=== PATIENT | male | born 1960 | race Caucasian/White ===

== ENCOUNTER 2016-10-01 15:11 | Emergency (ER) | payer SELFPAY ==
[~2016-10-01] VITALS: Ht 182.8 cm; Wt 65.8 kg
[~2016-10-01 15:11] MED LIST: MEDROL DOSEPAK4 MG PO; VICODIN ES 7501 TAB PO
[2016-10-01] MEDS ORDERED: NAPROSYN500 MG PO (16:14)
[2016-10-01] MEDS ORDERED: AMOXICILLIN500 M2 PO (16:14)
== END 2016-10-01 16:21 | disposition home or self-care (01) ==
LOC: ED 15:11
DX: K08.89 Other specified disorders of teeth and supporting structures (principal); F17.200 Nicotine dependence, unspecified, uncomplicated

== ENCOUNTER 2017-02-14 12:20 | Emergency (ER) | payer SELFPAY ==
[~2017-02-14] VITALS: Wt 70.3 kg
[~2017-02-14 12:20] MED LIST changes: +AMOXICILLIN500 M2 PO; +NAPROSYN500 MG PO
[2017-02-14 12:53] LABS: BASO # 0.1 10*3/uL (0.0-0.1); BASO % 0.5 % (0.0-1.0); EOS % 0.3 % (1.0-4.0); HEMATOCRIT 44.8 % (42.0-52.0); HEMOGLOBIN 15.6 g/dl (14.0-18.0); LYMPH # 1.1 10*3/uL (1.3-4.4); LYMPH % 11.5 % (27.0-41.0); MEAN CELL VOLUME 90.9 fl (80.0-94.0); MEAN CORPUSCULAR HGB 31.6 pg (27.0-31.0); MEAN CORPUSCULAR HGB CONC 34.8 g/dl (33.0-37.0); MEAN PLATELET VOLUME 9.5 fl (9.6-12.3); MONO # 0.6 10*3/uL (0.1-1.0); MONO % 6.5 % (3.0-9.0); NEUT # 7.4 10*3/uL (2.3-7.9); NEUT % 80.9 % (47.0-73.0); PLATELET COUNT AUTOMATED 256 10*3/uL (130-400); RED BLOOD COUNT 4.93 10*6/uL (4.50-5.90); RED CELL DISTRI WIDTH 12.8 % (0-14.5); WHITE BLOOD COUNT 9.2 10*3/uL (4.8-10.8)
[2017-02-14 13:10] LABS: ALBUMIN 4.2 gm/dl (3.1-4.5); ALKALINE PHOSPHATASE 67 U/L (45-117); BUN 18 mg/dl (7-24); CHLORIDE 103 mmol/L (98-107); CREATININE 0.92 mg/dL (0.70-1.30); POTASSIUM 4.3 mmol/L (3.5-5.1); SGOT/AST 12 IU/L (3-35); SGPT/ALT 20 U/L (12-78); SODIUM 138 mmol/L (136-145); TOTAL PROTEIN 7.8 gm/dL (6.4-8.2)
[2017-02-14 13:12] LABS: ETHYL ALCOHOL < 3.0 mg/dl (<3); TROPONIN I < 0.015 ng/ml (<0.045)
[2017-02-14] MEDS ORDERED: VISTARIL25 MG PO (14:03)
== END 2017-02-14 14:27 | disposition home or self-care (01) ==
LOC: ED 12:20
PROVIDERS: Physician Assistant
DX: G47.00 Insomnia, unspecified (principal); F17.200 Nicotine dependence, unspecified, uncomplicated; Z88.1 Allergy status to other antibiotic agents

== ENCOUNTER 2019-02-09 19:08 | Emergency (ER) | payer OTHER ==
[~2019-02-09] VITALS: Ht 182.8 cm; Wt 63.5 kg
[~2019-02-09 19:08] MED LIST changes: +VISTARIL25 MG PO
[2019-02-09] MEDS ORDERED: SEPTDS PO (20:05)
== END 2019-02-09 20:19 | disposition home or self-care (01) ==
LOC: ED 19:08
DX: H60.02 Abscess of left external ear (principal)

== ENCOUNTER → 2021-04-24 | Outpatient (CLI) | payer OTHER ==
[~2021-04-24] MED LIST changes: +IBUPROFEN600 MG PO; +SEPTDS PO
== END ==
LOC: COVID19 15:27
PROVIDERS: ATTEND Internal Medicine
DX: U07.1 COVID-19 (principal)

== ENCOUNTER 2021-04-25 18:57 | Emergency (ER) | payer OTHER ==
[~2021-04-25] VITALS: Ht 182.8 cm; Wt 65.8 kg
[~2021-04-25 18:57] MED LIST changes: -IBUPROFEN600 MG PO
[2021-04-25 19:39] LABS: BASO % 0.5 % (0.0-1.0); EOS % 0.5 % (1.0-4.0); HEMATOCRIT 40.2 % (42.0-52.0); MEAN CELL VOLUME 95.3 fl (80.0-94.0); MEAN CORPUSCULAR HGB 31.5 pg (27.0-31.0); MEAN CORPUSCULAR HGB CONC 33.1 g/dl (33.0-37.0); MONO # 0.5 10*3/uL (0.1-1.0); MONO % 13.9 % (3.0-9.0); NEUT # 2.3 10*3/uL (2.3-7.9); NEUT % 58.1 % (47.0-73.0); PLATELET COUNT AUTOMATED 142 10*3/uL (130-400); RED BLOOD COUNT 4.22 10*6/uL (4.50-5.90); RED CELL DISTRI WIDTH 11.9 % (0-14.5); WHITE BLOOD COUNT 3.9 10*3/uL (4.8-10.8)
[2021-04-25 19:54] LABS: ALBUMIN 2.7 gm/dl (3.1-4.5); ALKALINE PHOSPHATASE 75 U/L (45-117); BUN 22 mg/dl (7-24); CHLORIDE 105 mmol/L (98-107); CREATININE 1.06 mg/dL (0.70-1.30); POTASSIUM 4.6 mmol/L (3.5-5.1); SGOT/AST 30 IU/L (3-35); SGPT/ALT 24 U/L (12-78); SODIUM 136 mmol/L (136-145); TOTAL PROTEIN 6.2 gm/dL (6.4-8.2)
[2021-04-25] MEDS ORDERED: IBUPROFEN600 MG PO (21:18)
== END 2021-04-25 20:42 | disposition home or self-care (01) ==
LOC: ED 18:57
PROVIDERS: Internal Medicine
DX: R05.9 Cough, unspecified (principal); D72.829 Elevated white blood cell count, unspecified; E44.0 Moderate protein-calorie malnutrition

== ENCOUNTER 2024-05-28 04:41 | Emergency (ER) | payer OTHER ==
[~2024-05-28] VITALS: Ht 182.8 cm; Wt 61.2 kg
[~2024-05-28 04:41] MED LIST changes: +IBUPROFEN600 MG PO
[2024-05-28] MEDS ORDERED: Ketorolac Tromethamine 30 MG/ML VIAL IM ONE (05:30)
[2024-05-28] MEDS ORDERED: ZITHROMAX250 MG PO (05:33)
[2024-05-28] MEDS ORDERED: PREDNISONE20 M1 PO (05:33)
== END 2024-05-28 05:51 | disposition home or self-care (01) ==
LOC: ED 04:41
DX: B34.9 Viral infection, unspecified (principal); Z79.899 Other long term (current) drug therapy; Z20.822 Contact with and (suspected) exposure to COVID-19